=== PATIENT | female | born 2000 | race Caucasian/White ===

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

== ENCOUNTER 2023-02-22 06:54 | Outpatient (CLI) | payer BC ==
[~2023-02-22] VITALS: Ht 162.6 cm; Wt 50.0 kg
[~2023-02-22 06:54] MED LIST changes: -TRM50T PO
[2023-02-23] MEDS ORDERED: TRM50T PO (13:46)
== END 2023-02-23 08:32 | disposition home or self-care (01) ==
LOC: PREOP 06:54
PROVIDERS: ATTEND Surgery
DX: Z01.818 Encounter for other preprocedural examination (principal)

== ENCOUNTER → 2023-02-22 | Outpatient (CLI) | payer BC ==
[~2023-02-22] MED LIST changes: +ACHD5005 PO; -CATHETER FLUSH 10 ML SYR IV PRN; -HOLD METFORMIN - RECEIVED CONTRAST 20 ML VIAL IV SCH; -IOHEXOL 350 MG/ML 100 ML (OMNIPAQUE 350) VIAL IV ONE; -NS 100 ML (IVPB) BAG IV ONE; +TRM50T PO
== END ==
LOC: CARD 10:13
PROVIDERS: ATTEND Nurse Practitioner Adult Health
DX: Z51.11 Encounter for antineoplastic chemotherapy (principal); C84.Z0 Other mature T/NK-cell lymphomas, unspecified site
CPT/HCPCS: 93306

== ENCOUNTER 2023-02-23 12:06 | Day surgery (SDC) | payer BC ==
[2023-02-23] VITALS (9 sets, daily range): BP systolic 102–132; BP diastolic 64–99
[~2023-02-23] VITALS: Ht 162.6 cm; Wt 50.0 kg
[2023-02-23] MEDS ORDERED: ceFAZolin INJECTION 2,000 MG ONE (12:21)
[2023-02-23] MEDS ORDERED: NS (IVPB) 50 ML 50 ML ONE (12:21)
[2023-02-23] MEDS ORDERED: MIDAZOLAM INJ 2 MG/2 ML VIAL ONE ×2 (12:22→13:04)
[2023-02-23] MEDS ORDERED: LACTATED RINGERS 1,000 ML 1,000 ML IV PRN (12:30)
[2023-02-23] MEDS ORDERED: ceFAZolin INJECTION 2,000 MG in NS (IVPB) 50 ML 50 ML IV ONE (12:30)
--- NOTE | 2023-02-23 12:37 | Progress Note-Pre Operative ---
Pre-Operative Progress Note Date H&P Reviewed: Feb 23, 2023 Time H&P Reviewed: 12:37 History & Physical: H&P Reviewed, Patient Examed, No changes noted Pre-Operative Diagnosis: t-cell lymphoma HUONG OJEDA DO Feb 23, 2023 12:37
[2023-02-23] MEDS ORDERED: HEParin (CENTRAL IV FLUSH) 500 UNIT/5 ML SYR ONE (12:51)
[2023-02-23] MEDS ORDERED: 0.9% SODIUM CHLORIDE PF INJ 20 ML VIAL ONE (12:51)
[2023-02-23] MEDS ORDERED: LIDOCAINE/EPI 1%-1:200,000 (XYLOCAINE) 30 ML VIAL ONE (12:51)
[2023-02-23] MEDS ORDERED: HEParin (CENTRAL IV FLUSH) 500 UNIT/5 ML SYR INJ ONE (13:29)
[2023-02-23] MEDS ORDERED: 0.9% SODIUM CHLORIDE PF INJ 20 ML VIAL IR ONE (13:30)
[2023-02-23] MEDS ORDERED: LIDOCAINE/EPI 1%-1:200,000 (XYLOCAINE) 30 ML VIAL INJ ONE (13:31)
[2023-02-23] MEDS ORDERED: TRM50T PO (13:46)
--- NOTE | 2023-02-23 13:49 | Discharge Inst-Simple/Standard ---
Discharge Inst-Standard Discharge Medications New, Converted or Re-Newed RX: Transmitted to Pharmacy Patient Instructions/Follow Up Plan of Care/Instructions/FU: 2 weeks Elizabeth Activity as Tolerated: No Discharge Diet: Regular Diet Other Inst to Patient Follow up Appt: Make appointment for 2 week. Instructions: No lifting greater than 10 pounds. No strenuous activity. May shower in 24 hours, no tub bath or soaking. Use incentive spirometer at home as directed. No Smoking Skin/Wound Care: You have special glue over your incision that will fall off on it's own. Ice pack on 15 min and off 30 min and repeat for first 48 hours. Symptoms to Report: Appetite Changes, Extremity Discoloration, Numbness/Tingling, Swelling Increased, Bleeding Excessive, Eyesight Changes, Pain Increased, Urine Color Change, Constipation(Persistent), Fever over 101 degree F, Pain/Pressure in chest, Urinating Difficulty, Cough Up/Vomit Blood, Heart Beat Irreg/Pounding, Pain/Pressure in jaw, Vaginal Bleeding Increase, Cramps in feet or legs, Lightheadedness, Pain/Pressure in shoulder, Diarrhea(Persistent), Memory Changes Suddenly, Questions/Concerns, Weight gain consecutive days, Dizziness/Fainting, Nausea/Vomiting, Shortness of Breath, Weight gain over 2 pounds If questions or concerns contact your physician Or seek help at emergency department. HUONG OJEDA DO Feb 23, 2023 13:49
--- NOTE | 2023-02-23 13:51 | Anesthesia-General Post-Op ---
MAC Patient Condition Mental Status/LOC: Same as Preop Cardiovascular: Satisfactory Nausea/Vomiting: Absent Respiratory: Satisfactory Pain: Controlled Complications: Absent Post Op Complications Complications None Follow Up Care/Instructions Patient Instructions None needed. Anesthesiology Discharge Order Discharge Order Patient is awake in PACU and doing well, no complaints, stable vital signs, no apparent adverse anesthesia problems. No complications reported per nursing. TRIP BASS DO Feb 23, 2023 13:51
--- NOTE | 2023-02-23 13:54 | Progress Note-Post Operative ---
Post-Operative Progess Note Surgeon (s)/Elementary Assistant Teacher (s) Surgeon HUONG OJEDA DO Elementary Assistant Teacher: na Pre-Operative Diagnosis t-cell lymphoma Post-Operative Diagnosis same Procedure & Operative Findings Date of Procedure 02/23/23 Procedure Performed/Findings PROCEDURE: Left internal jugular port placement using ultrasound guidance. COMPLICATIONS: None. 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 Patient understands the risks and benefits of port placement and wished to proceed with the procedure. Consent was signed on the chart. PROCEDURE: The patient was taken to the operating suite, was prepped and draped in the sterile fashion. A surgical pause was performed. Ultrasound was used to locate the internal jugular vein. Once located anesthetic was infiltrated above it. Using micro-access kit, the right internal vein was accessed. Dark nonpulsatile blood was withdrawn. The wire was inserted. Fluoroscopy assured proper placement. The needle was removed. The micro-access dilator was advanced over the wire and the wire was removed. The regular wire was inserted and fluoroscopy assured proper placement. The wire was then secured. Local anesthetic was used to anesthetize from the neck for tunneling down to the right chest and for pocket creation. A 15 blade scalpel was used to make an incision over the left chest. Cautery was used to dissect down to the pectoral fascia. A pocket was created with blunt dissection. The dilator sheath was then advanced over the wire under fluoroscopy and the dilator and wire were removed. The Groshong catheter was inserted through the sheath and the sheath was then removed. The Groshong wire was removed. The catheter was then tunneled to the right chest pocket. Fluoroscopy was used to cut to length and this was then attached to the port which was then placed within the pocket. The port was then accessed without difficulty. It was then flushed with saline and then heparin. The subcutaneous tissues were then reapproximated using 3-0 Vicryl. The areas were then washed and dried. Skin Affix was placed over incision. The insertion point of the neck Skin Affix was placed over the incision. The patient tolerated the procedure well without complication and was taken to recovery room in stable condition. Chest x-ray is pending. Anesthesia Type mac c local Estimated Blood Loss Estimated blood loss (mL): minimal Specimens/Packing Specimens Removed HUONG Zaman DO Feb 23, 2023 13:54
[2023-02-23] MEDS ORDERED: morphine INJ 10 MG/ML 1ML (SYR OR VIAL) ONE (13:58)
[2023-02-23] MEDS ORDERED: ONDANSETRON INJECTION 4 MG/2 ML (SDV) IVP PRN (14:00)
[2023-02-23] MEDS ORDERED: morphine INJ 10 MG/ML 1ML (SYR OR VIAL) IVP ONE (14:00)
--- NOTE | 2023-02-23 14:04 | Diagnostic Imaging Report ---
EXAMINATION: Chest, one view. HISTORY: Port placement. COMPARISON: None available. FINDINGS: The lungs are clear without edema or pneumonia. No pleural effusion or pneumothorax. Heart size is normal. IMPRESSION: 1. Clear lungs. Dictated by: Dictated on workstation # [id number]
[2023-02-23] MEDS ORDERED: diphenhydrAMINE INJ 50 MG/ML VIAL ONE (14:33)
[2023-02-23] MEDS ORDERED: diphenhydrAMINE INJ 50 MG/ML VIAL IVP ONE (14:45)
--- NOTE | 2023-02-23 16:58 | Diagnostic Imaging Report ---
INDICATION: Port-A-Cath placement. FINDINGS: Intraoperative fluoroscopy view was obtained during Port-A-Cath placement. Single view obtained, 132.4 seconds of fluoroscopy time was used. 10.22 mGy of exposure. Single view demonstrates Port-A-Cath over the left chest with catheter in the left internal jugular vein and catheter tip overlying the mid SVC. The study is otherwise limited. IMPRESSION: Intraoperative views demonstrate Port-A-Cath placement, as above. Dictated by: Dictated on workstation # [id number]
== END 2023-02-23 15:00 ==
LOC: SDC 12:06
PROVIDERS: ATTEND Surgery
DX: C84.40 Peripheral T-cell lymphoma, not elsewhere classified, unspecified site (principal); C85.90 Non-Hodgkin lymphoma, unspecified, unspecified site; I87.2 Venous insufficiency (chronic) (peripheral)
CPT/HCPCS: 36561; 71045; 76000; 84703; 87081; C1788